=== PATIENT | female | born 2000 | race Two or more races ===

== ENCOUNTER 2022-05-10 20:58 | Emergency (ER) | payer BC, MEDICAID, SELFPAY ==
--- NOTE | ~2022-05-10 | CT_ITS ---
EXAMINATION: HEAD CT WITHOUT CONTRAST CERVICAL SPINE CT WITHOUT CONTRAST CLINICAL INFORMATION: Fall. Left hemotympanum. COMPARISON: None. TECHNIQUE: Contiguous axial imaging of the head was performed without the administration of IV contrast. Axial multidetector volumetric images were also performed through the cervical spine without intravenous contrast. Multiplanar reconstructed images in coronal and sagittal orientations were submitted. This CT examination was performed using dose optimization techniques as appropriate, variously including the following: *Automated exposure control *Adjustment of mA and/or kV according to patient size (this includes techniques or standardized protocols for targeted exams where dose is matched to indication/reason for exam; i.e. extremities or head) *Use of iterative reconstruction technique DOSE: 891 mGy-cm FINDINGS: HEAD: There is a small hyperdense focus within a sulcus in the right frontal lobe laterally which is most concerning for small focus of subarachnoid hemorrhage. No additional foci of intracranial hemorrhage are identified. There is a small focus of pneumocephalus in the left lateral aspect of the middle cranial fossa deep to the temporal bone fracture detailed below. No appreciable subdural or epidural fluid collections in this region. There is no evidence of territorial infarction. No abnormal mass-effect or midline shift. No extra-axial fluid collections. Vargas to white matter differentiation is well preserved. The ventricles are normal in size and configuration. There is no abnormal attenuation within the brain parenchyma. A fracture of the squamosal and petrous segments of the left temporal bone extends posteriorly into the left lambdoid suture with gas outlining the margins of the lambdoidal suture. This fracture line is oblique/transverse orientation, extending across the cephalad margin of the petrous portion near the interface with the squamosal portion, terminating anteriorly within the fossa of the temporomandibular joint. This fracture line is relatively superficial without appreciable involvement of the ossicles or middle ear cavity on this images. There is a small amount of gas in the overlying soft tissues. Additionally, a few foci of gas are noted to extend into the left transverse and sigmoid sinus. The soft tissues and osseous structures are normal. The sinuses and mastoid air cells are clear. CERVICAL SPINE: Vertebral body heights are normal. No fractures of the vertebral bodies or posterior elements. Vertebral alignment is normal. No subluxation. The craniocervical and atlantoaxial articulations are normal. Intervertebral disc heights are normal. No significant degenerative disc disease. Facet joints are normal. Central canal and neural foramina appear patent without appreciable stenoses. No significant paravertebral soft tissue swelling. A few small foci of gas are present within the jugular veins including the left external jugular and internal jugular veins, possibly due to IV placement. Cervical soft tissues are otherwise unremarkable. Imaged portions of the lung apices are clear. CT/CT cervical spine wo con IMPRESSION: 1. Acute oblique/transverse fracture through the left temporal bone involving both the petrous and squamosal portions, terminating in the left temporomandibular joint. Trace underlying pneumocephalus. Small amount of gas within the left sigmoid and transverse sinuses. 2. Small focus of subarachnoid hemorrhage in the right frontal lobe. No additional foci of intracranial hemorrhage. 3. No acute fracture or malalignment in the cervical spine. This critical result was discussed by telephone with Samira Arredondo DO at 10:35 PM on 05/10/2022.
--- NOTE | ~2022-05-10 | XR_ITS ---
EXAMINATION: XR HAND, LEFT CLINICAL INFORMATION: Fall. COMPARISON: None TECHNIQUE: PA, lateral, and oblique views of the left hand. FINDINGS: The bones and soft tissues are normal. No fracture. Alignment is anatomic. Joint spaces are maintained. No erosions or soft tissue calcifications. XR/XR hand LT min 3V IMPRESSION: Normal left hand.
--- NOTE | ~2022-05-10 | XR_ITS ---
EXAMINATION: XR TIBIA AND FIBULA, LEFT CLINICAL INFORMATION: Fall. COMPARISON: None TECHNIQUE: AP and lateral views of the left tibia and fibula were obtained. FINDINGS: The bones and soft tissues are normal. No fracture. No osseous lesions. XR/XR tibia fibula LT 2V IMPRESSION: Normal left tibia and fibula.
--- NOTE | ~2022-05-10 | XR_ITS ---
EXAMINATION: XR CHEST CLINICAL INFORMATION: Fall. COMPARISON: None TECHNIQUE: AP upright view of the chest was obtained. FINDINGS: Lungs are clear. No consolidation, pneumothorax, or pleural effusion. Cardiac and mediastinal contours are normal. Pulmonary vasculature is unremarkable. Trachea is midline. Osseous structures are unremarkable. XR/XR chest 1V IMPRESSION: Normal chest radiograph
[2022-05-10 21:06] VITALS: BP 124/78; BP 134/101; PULSE 59; PULSE 75; RESP 18; O2SAT 100; O2SAT 99; BMI 21.9
[2022-05-10 21:52] LABS: MANUAL DIFF FLAG NO
[2022-05-10 21:53] LABS: Basophils Absolute Auto 0.1 X10*3/uL (0.0-0.2); Basophils Percent Auto 0.5 % (0-2); Hematocrit 32.4 % (37.0-47.0); Hemoglobin 10.9 g/dl (12.0-16.0); Imm Gran Abs Auto 0.02 X10*3/uL (0.00-0.03); Imm Gran Pct Auto 0.2 % (0.0-0.4); Lymphocytes Percent Auto 20.6 % (20-40); Mean Corpuscular HGB Conc 33.6 g/dl (31.0-35.0); Mean Corpuscular Hemoglobin 30.2 pg (27.0-33.0); Mean Corpuscular Volume 89.8 fL (80.0-98.0); Mean Platelet Volume 9.2 fL (9.4-12.3); Monocytes Absolute Auto 0.8 X10*3/uL (0.1-1.2); Monocytes Percent Auto 8.6 % (2-11); Neutrophils Absolute Auto 6.9 x10*3/uL (2.0-8.3); Neutrophils Percent Auto 70.1 % (45-73); Platelet Count 292 X10*3/uL (160-400); Red Blood Count 3.61 X10*6/uL (4.20-5.50); Red Cell Distribution Width 13.1 % (11.0-16.0); White Blood Count 9.8 X10*3/uL (4.8-10.8)
[2022-05-10] MEDS: ondansetron HCL 4 MG/2 ML VIAL IVPUSH ×2 (21:54→23:00)
[2022-05-10] MEDS: Lactated Ringers 1,000 ML 999 ML IV (21:54)
--- NOTE | 2022-05-10 22:00 | ED_ITS ---
HPI - Fall General Chief Complaint: Fall Stated Complaint: fall Time Seen by Provider: 05/10/22 21:17 Source: patient Mode of arrival: EMS Limitations: no limitations History of Present Illness HPI Narrative: 21 yo female states she was riding her skateboard tonight not wearing a helmet went down a hill and fell - she did not lose consciousness. States she hit the left side of her head on the pavement. 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 Not on blood thinners. Complains of abrasions to L hand, L lower leg, L ear pain complaint: fall Onset (ago): minute(s) (just prior to arrival ) Fall from: other (skate board) Fall witnessed: no Place fall occurred: street Loss of consciousness: none Prolonged down time: no Symptoms prior to fall: none Context: tripped/slipped Location of injury: head Location of injury - extremities: left: hand and lower leg Severity: moderate Quality: dull and aching Associated symptoms (after fall): headache, lightheaded and other (nausea, ear pain) Related Data Allergies Allergy/AdvReac Type Severity Reaction Status Date / Time No Known Allergies Allergy Verified 05/10/22 21:06 Review of Systems Review of Systems: Constitutional : No Fever, No Chills, No Fatigue ENT/Mouth : No sore throat, No Rhinorrhea Eyes: No Eye Pain, No Swelling, No Redness, pos ear pain Cardiovascular : No Chest Pain, No SOB, No Dyspnea on Exertion Respiratory : No Cough, No Sputum Gastrointestinal : pos Nausea, No Vomiting, No Diarrhea, No abdominal Pain Genitourinary : No Dysuria, No Urinary Frequency, No Hematuria, Musculoskeletal : No joint pain, No Myalgias, No Joint Swelling, pos lower left leg pain Skin : No Skin Lesions, No rash, pos abrasions Neuro : No Weakness, No Numbness, No Dizziness, positive Headache Psych : No Anxiety/Panic, No Depression Heme/Lymph: No Bruising, No Bleeding,No Lymphadenopathy Endocrine : No Polyuria, No Polydipsia All other systems reviewed and are negative [facility] Past Medical History Attestation statement: The following information was validated with the patient. Medical History No pertinent past medical history Social History Social History (Updated 05/10/22 @ 22:02 by JOSS Troy Alcohol intake: never Patient Tobacco Use Status: Never used Tobacco Use of substances other than those prescribed or required for medical reasons: No Advance Directives: No Advance Directives Information Provided: No Physical Exam Vital Signs: Vital Signs: Last Vital Signs Pulse 59 05/10/22 22:28 Resp 20 05/10/22 22:28 BP 139/91 H 05/10/22 22:28 Pulse Ox 99 05/10/22 22:28 O2 Del Method 05/10/22 22:28 BMI result Body Mass Index 21.9 Appearance: Alert. Oriented X3. Anxious mild acute distress. Eyes: Pupils equal, round and reactive to light. ENT: Pharynx normal. R TM normal, L TM hemotympanum noted, no fluid seen leaking at this time Neck: denies pain but collar in place CVS: Normal heart rate and rhythm. Pulses normal. Chest wall: nontender Respiratory: No respiratory distress. Breath sounds normal. Abdomen: Soft and non-tender. Back: atraumatic Skin: Skin warm and dry. Normal skin color. Normal skin turgor. Extremities: L hand abrasions on MCP joints - NV intact, L lower anterior ibarra contusion and superficial abrasion Neuro: Oriented X 3. No motor deficit. No sensory deficit. Soft spoken states she is tired but easily woken GCS 15 Course Course Course Narrative: requested STAT read on head CT given initial review on CT scanner while patient on CT table - still delayed 1028pm will transfer to [facility] [place] prelim by me call to transfer center 1023pm temporal L sided skull fracture with pneumocephalus nondisplaced contralateral R sided traumatic SAH no midline shift will refer to trauma center patient remains GCS 15 xrays of hand, lower left leg and chest xray no acute trauma radiology read call from radiology 1033pm - L temporal bone - superficial oblique, pneumocephalus intracranial, contracoup small SAH no midline shift on R frontal lobe cervical spine read negative 1047pm call back from [facility] [place] transfer line ED to ED discussed with Dr. Martin GCS 15 on transfer 2 rounds of 4mg zofran, 2mg morphine, offered liquid tylenol patient refused PO medications, 1L LR HEAD: There is a small hyperdense focus within a sulcus in the right frontal lobe laterally which is most concerning for small focus of subarachnoid hemorrhage. No additional foci of intracranial hemorrhage are identified. There is a small focus of pneumocephalus in the left lateral aspect of the middle cranial fossa deep to the temporal bone fracture detailed below. No appreciable subdural or epidural fluid collections in this region. There is no evidence of territorial infarction. No abnormal mass-effect or midline shift. No extra-axial fluid collections.? Vargas to white matter differentiation is well preserved. The ventricles are normal in size and configuration. ? There is no abnormal attenuation within the brain parenchyma. A fracture of the squamosal and petrous segments of the left temporal bone extends posteriorly into the left lambdoid suture with gas outlining the margins of the lambdoidal suture. This fracture line is oblique/transverse orientation, extending across the cephalad margin of the petrous portion near the interface with the squamosal portion, terminating anteriorly within the fossa of the temporomandibular joint. This fracture line is relatively superficial without appreciable involvement of the ossicles or middle ear cavity on this images. There is a small amount of gas in the overlying soft tissues. Additionally, a few foci of gas are noted to extend into the left transverse and sigmoid sinus. The soft tissues and osseous structures are normal.? The sinuses and mastoid air cells are clear. CERVICAL SPINE: Vertebral body heights are normal. No fractures of the vertebral bodies or posterior elements. Vertebral alignment is normal. No subluxation. The craniocervical and atlantoaxial articulations are normal. Intervertebral disc heights are normal. No significant degenerative disc disease. Facet joints are normal. Central canal and neural foramina appear patent without appreciable stenoses. No significant paravertebral soft tissue swelling. A few small foci of gas are present within the jugular veins including the left external jugular and internal jugular veins, possibly due to IV placement. Cervical soft tissues are otherwise unremarkable. Imaged portions of the lung apices are clear. CT/CT cervical spine wo con IMPRESSION: 1. Acute oblique/transverse fracture through the left temporal bone involving both the petrous and squamosal portions, terminating in the left temporomandibular joint. Trace underlying pneumocephalus. Small amount of gas within the left sigmoid and transverse sinuses. 2. Small focus of subarachnoid hemorrhage in the right frontal lobe. No additional foci of intracranial hemorrhage. 3. No acute fracture or malalignment in the cervical spine. ? This critical result was discussed by telephone with Samira Arredondo DO at 10:35 PM on 05/10/2022. Procedures FAST Exam FAST Exam 1: Fluid in Morison's pouch: No Fluid in Splenorenal Junction: No Fluid around bladder, Transverse view: No Fluid around bladder, Sagittal view: No Fluid in Pericardial Sac: No Gross Wall Motion Abnormality: No Study normal for this patient: Yes Images saved for further review: No MDM - Fall MDM Narrative Medical decision making narrative: 21 yo female with fall down hill while skateboarding not wearing helmet she c/o headache and feels tired + vomiting with evidence of trauma to the ear - STAT head/cspine CT scan as well as images of the L hand and L lower leg ordered. FAST exam done. She also c/o some abdominal pain - CT scan of abdomen ordered, IVF and zofran ordered. She denies LOC, blood thinners. Dispo per results and findings. Lab Data Result diagrams: 05/10/22 21:41 05/10/22 21:41 Labs: Lab Results 05/10/22 05/10/22 05/10/22 Range/Units 21:41 21:41 21:41 WBC 9.8 (4.8-10.8) X10*3/uL RBC 3.61 L (4.20-5.50) X10*6/uL Hgb 10.9 L (12.0-16.0) g/dl Hct 32.4 L (37.0-47.0) % MCV 89.8 (80.0-98.0) fL MCH 30.2 (27.0-33.0) pg MCHC 33.6 (31.0-35.0) g/dl RDW 13.1 (11.0-16.0) % Plt Count 292 (160-400) X10*3/uL MPV 9.2 L (9.4-12.3) fL Immature Gran % (Auto) 0.2 (0.0-0.4) % Neut % (Auto) 70.1 (45-73) % Lymph % (Auto) 20.6 (20-40) % Alfalfa % (Auto) 8.6 (2-11) % Eos % (Auto) 0.0 (0-4) % Baso % (Auto) 0.5 (0-2) % Lymph # (Auto) 2.0 (1.2-4.9) X10*3/uL Alfalfa # (Auto) 0.8 (0.1-1.2) X10*3/uL Eos # (Auto) 0.0 (0.0-0.4) X10*3/uL Baso # (Auto) 0.1 (0.0-0.2) X10*3/uL Abs Immat Gran (auto) 0.02 (0.00-0.03) X10*3/uL Absolute Neuts (auto) 6.9 (2.0-8.3) x10*3/uL Absolute Nucleated RBC 0.000 (0.0-0.012) X10*3/uL Nucleated RBC % (auto) 0.0 (0.0-0.2) /100WBC PT 11.4 (10.0-13.1) SEC INR 1.0 (0.9-1.1) Sodium 138 (135-145) mmol/L Potassium 3.6 (3.3-5.1) mmol/L Chloride 106 (96-108) mmol/L Carbon Dioxide 22 (22-29) mmol/L Anion Gap 14 (12-20) BUN 7 L (9-16) mg/dL Creatinine 0.67 (0.5-1.4) mg/dL Estim Creat Clear Calc 105.9 Estimated GFR > 60 Random Glucose 129 H (60-115) mg/dL Calcium 8.9 (8.4-10.2) mg/dL Total Bilirubin 0.2 (0.0-1.0) mg/dL Direct Bilirubin < 0.2 (0.0-0.5) mg/dL AST 67 H (5-31) U/L ALT 26 (0-31) U/L Alkaline Phosphatase 72 (39-117) U/L Total Protein 6.6 (6.5-8.0) g/dL Albumin 4.1 (3.5-5.0) g/dL Lipase 12 (8-78) U/L Beta HCG, Quant < 2 mIU/mL COVID-19 (PEDRO PABLO) (Negative) COVID-19 Clin Com 05/10/22 Range/Units 22:04 WBC (4.8-10.8) X10*3/uL RBC (4.20-5.50) X10*6/uL Hgb (12.0-16.0) g/dl Hct (37.0-47.0) % MCV (80.0-98.0) fL MCH (27.0-33.0) pg MCHC (31.0-35.0) g/dl RDW (11.0-16.0) % Plt Count (160-400) X10*3/uL MPV (9.4-12.3) fL Immature Gran % (Auto) (0.0-0.4) % Neut % (Auto) (45-73) % Lymph % (Auto) (20-40) % Alfalfa % (Auto) (2-11) % Eos % (Auto) (0-4) % Baso % (Auto) (0-2) % Lymph # (Auto) (1.2-4.9) X10*3/uL Alfalfa # (Auto) (0.1-1.2) X10*3/uL Eos # (Auto) (0.0-0.4) X10*3/uL Baso # (Auto) (0.0-0.2) X10*3/uL Abs Immat Gran (auto) (0.00-0.03) X10*3/uL Absolute Neuts (auto) (2.0-8.3) x10*3/uL Absolute Nucleated RBC (0.0-0.012) X10*3/uL Nucleated RBC % (auto) (0.0-0.2) /100WBC PT (10.0-13.1) SEC INR (0.9-1.1) Sodium (135-145) mmol/L Potassium (3.3-5.1) mmol/L Chloride (96-108) mmol/L Carbon Dioxide (22-29) mmol/L Anion Gap (12-20) BUN (9-16) mg/dL Creatinine (0.5-1.4) mg/dL Estim Creat Clear Calc Estimated GFR Random Glucose (60-115) mg/dL Calcium (8.4-10.2) mg/dL Total Bilirubin (0.0-1.0) mg/dL Direct Bilirubin (0.0-0.5) mg/dL AST (5-31) U/L ALT (0-31) U/L Alkaline Phosphatase (39-117) U/L Total Protein (6.5-8.0) g/dL Albumin (3.5-5.0) g/dL Lipase (8-78) U/L Beta HCG, Quant mIU/mL COVID-19 (PEDRO PABLO) Negative (Negative) COVID-19 Clin Com See Note Critical Care Time Critical Care Time Critical Care Time: Yes Total Critical Care Time: 60 Attestation: IVF, IV pain medications, repeat neuro assessments, medical consult, transfer to tertiary center I attest to this time spent taking care of the patient Discharge Plan Discharge Clinical Impression: Intracranial hemorrhage, Abrasion, Hematotympanum of left ear Closed skull fracture Qualifiers: Encounter type: initial encounter Skull bone/location: temporal bone Qualified Code(s): S02.19XA - Other fracture of base of skull, initial encounter for closed fracture Patient Disposition: [facility] Transfer Details: [facility]
[2022-05-10 22:06] LABS: Prothrombin Time 11.4 SEC (10.0-13.1)
[2022-05-10 22:12] LABS: Anion Gap 14 (12-20); Blood Urea Nitrogen 7 mg/dL (9-16); Calcium 8.9 mg/dL (8.4-10.2); Carbon Dioxide 22 mmol/L (22-29); Chloride 106 mmol/L (96-108); Creatinine Clr Calc Pharmacy 105.9; Estimated Glomerular Filt Rate > 60; Glucose Random 129 mg/dL (60-115); Potassium 3.6 mmol/L (3.3-5.1); Sodium 138 mmol/L (135-145)
[2022-05-10 22:19] LABS: HCG Quantitative < 2 mIU/mL
[2022-05-10 22:28] VITALS: BP 139/91; PULSE 59; RESP 20; O2SAT 99
--- NOTE | 2022-05-10 22:31 | PC.NURSE ---
CALL OUT TO [facility] TRANSFER LINE @[phone], WILL BE EXPECTING A CALL BACK FROM TRAUMA
[2022-05-10 22:49] LABS: COVID-19 Test Negative (Negative)
--- NOTE | 2022-05-10 22:49 | PC.NURSE ---
senior loan officer to bedside for medical records administrator per MD orders. Pt tearful, stating she does not believe she can tolerate anything by mouth and is endorsing a worsening headache and left ear pain. Pt and men's swim coach requesting medication via IV. MD Arredondo made aware and new orders obtained. Pt continues to request that her C-Collar be removed but staff continue to reinforce education and importance of keeping the color in place and not moving around and/or laying on her side. MD Arredondo attempting to make contact with [facility] [place] attending for transfer. PO Liquid tylenol not given per request and pt will be medicated with IVP meds per MAR
[2022-05-10 22:50] LABS: Alanine Aminotransferase 26 U/L (0-31); Albumin Level 4.1 g/dL (3.5-5.0); Alkaline Phosphatase 72 U/L (39-117); Aspartate Amino Transferase 67 U/L (5-31); Bilirubin Direct < 0.2 mg/dL (0.0-0.5); Bilirubin Total 0.2 mg/dL (0.0-1.0); Lipase 12 U/L (8-78); Total Protein 6.6 g/dL (6.5-8.0)
[2022-05-10] MEDS: Morphine Sulfate 2 MG/ML CARTRIDGE IVPUSH (23:00)
--- NOTE | 2022-05-10 23:10 | SUR.OPER ---
core paster brought pt to ED room 4 for privacy for change management facilitator and to initiate a 2nd IV line. Pt tolerated change management facilitator well, top had to be cut with notification provided to the pt due to collare placement. 2nd IV line not initiated per MD verbal request. Pt continued to endorse 10/10 headache and diffuse body pain. Pt appears more lethargic but still able to answer questions appropriately and is arousable with continued and direct verbal communication. Pt with Arcadio in place, underwear only garments in place. Coaches spoke with patient's sister to make her aware of all updates as mother speaks primarily bengali.
--- NOTE | 2022-05-10 23:14 | PC.NURSE ---
CALL OUT TO [facility] @[phone] REGARDING AND ALS TRANSPORT TO [facility]
--- NOTE | 2022-05-10 23:32 | PC.NURSE ---
EMS to bedside approx 10 minutes ago, food and beverage assistant manager provided report to statistical engineer. Pt remains at baseline. EMS removed pt's C-Collar to replace with pediatric collar that was provided at their request. Pt tolerated well, capnography initiated by EMS prior to departure. Coaches were present at bedside and will be along for ride. Nurse to nurse report to be called in by Gale MORRIS to [facility]
== END 2022-05-10 23:30 | disposition short-term general hospital (02) ==
PROVIDERS: Emergency Provider Emergency Medicine
DX: S02.19XA Other fracture of base of skull, initial encounter for closed fracture (principal); S06.6X0A Traumatic subarachnoid hemorrhage without loss of consciousness, initial encounter; S80.12XA Contusion of left lower leg, initial encounter; S60.512A Abrasion of left hand, initial encounter; S80.812A Abrasion, left lower leg, initial encounter; S00.412A Abrasion of left ear, initial encounter; V00.131A Fall from skateboard, initial encounter; H74.8X1 Other specified disorders of right middle ear and mastoid; Y93.51 Activity, roller skating (inline) and skateboarding; Y92.414 Local residential or business street as the place of occurrence of the external cause; Y99.9 Unspecified external cause status; Z20.822 Contact with and (suspected) exposure to COVID-19
CPT/HCPCS: 36415; 70450; 71045; 72125; 73130; 73590; 80048; 80076; 83690; 84702; 85025; 85610; 87635; 96374; 96375; 96376; 99285; J2270; J2405